=== PATIENT | male | born 1970 | race Caucasian/White ===

== ENCOUNTER 2017-05-04 09:35 | Emergency (ER) | payer OTHER ==
[~2017-05-04] VITALS: Wt 101.0 kg
[2017-05-04] MEDS ORDERED: IBUPROFEN 800 MG TAB PO ONE (10:00)
--- NOTE | 2017-05-04 10:09 | ERD ---
ER Documentation Chief Complaint Chief Complaint CHEST PAIN X 6 WEEKS ON AND OFF HPI Patient is a 46-year-old male with no medical problems who presents with chest pain. He says "I think it is just anxiety". He has had this for 6 weeks and says it is been constant but waxes and wanes in intensity. It is in the midsternal area. There is no radiation. He has had palpitations as well. He called his primary doctor today who told him to come to the emergency department. He has had stress and anxiety for the past few years. Upon review of old medical records this is the patient's first visit to the ER. ROS All systems reviewed and are negative except as per history of present illness. Medications Home Meds No Active Prescriptions or Reported Meds Allergies Allergies: Coded Allergies: No Known Allergy (Unverified , 05/04/17) PMhx/Soc Medical and Surgical Hx: pt denies Medical Hx, pt denies Surgical Hx Hx Psychiatric Problems: Yes (anxiety) Hx Alcohol Use: Yes (light) Hx Substance Use: Yes (marijuana) Hx Tobacco Use: Yes (1 cig a/day) Smoking Status: Light tobacco smoker FmHx Family History: No coronary disease Physical Exam Vitals Vital Signs Date Time Temp Pulse Resp B/P Pulse Ox O2 Delivery O2 Flow Rate FiO2 05/04/17 10:19 98.0 18 156/78 99 05/04/17 09:38 98.0 70 18 167/78 99 Physical Exam Const: No acute distress Head: Atraumatic Eyes: Normal Conjunctiva ENT: Normal External Ears, Nose and Mouth. Neck: Full range of motion..~ No meningismus. Resp: Clear to auscultation bilaterally Cardio: Regular rate and rhythm, no murmurs Abd: Soft, non tender, non distended. Normal bowel sounds Skin: No petechiae or rashes Back: No midline or flank tenderness Ext: No cyanosis, or edema Neur: Awake and alert Psych: Normal Mood and Affect Results 24 hrs Current Medications Medications (Trade) Dose Ordered Sig/Glenny Route PRN Reason Start Time Stop Time Status Last Admin Dose Admin Ibuprofen (Motrin) 800 mg ONCE ONCE PO 05/04/17 10:00 05/04/17 10:00 DC Procedures/MDM EKG read by me: Rate/Rhythm: Sinus bradycardia at a rate of 56 Intervals: Normal Impression: Sinus bradycardia without ischemia Chest X-ray 1V Interpreted by me: Soft Tissue: No acute abnormalities Bones: No acute abnormalities Mediastinum/Cardiac Silhouette/Lungs: No acute abnormalities Smoking Cessation Therapy: Pt. was lectured for greater than 3 minutes on the health risks of continued smoking and the benefits of cessation. Patient is a 46-year-old male who presents with chest pain. He describes it more as an anxiety with palpitations. His only risk factor is 1 cigarette per day. The patient is otherwise well-appearing and well hydrated. EKG shows no signs of ischemia or arrhythmia. Chest x-ray shows no pneumonia or pneumothorax. At this point I doubt acute coronary syndrome, pneumonia, pneumothorax, pulmonary embolism, or aortic dissection. I believe outpatient management is appropriate but the patient will need close follow-up with his primary doctor within 24-48 hours. He can return sooner for any worsening symptoms. Departure Diagnosis: Primary Impression: Chest pain Chest pain type: unspecified Qualified Code: R07.9 - Chest pain, unspecified type Condition: Fair Patient Instructions: Chest Pain, Uncertain Cause Referrals: CARL DOWELL MD Additional Instructions: Call your primary care doctor TOMORROW for an appointment during the next 1-2 days.See the doctor sooner or return here if your condition worsens before your appointment time. DIRK SANTOS MD May 04, 2017 10:09
--- NOTE | 2017-05-04 10:11 | RADRPT ---
PROCEDURE: XR Chest. CLINICAL INDICATION: chest pain TECHNIQUE: Single frontal view of the chest was obtained COMPARISON: None FINDINGS: The heart and mediastinum are within normal limits. The lungs are clear. There is no pleural effusion or pneumothorax. RPTAT: AA IMPRESSION: No acute disease. .Alessandro Perales MD, Date Time Electronically viewed and signed by .Alessandro Perales MD, on 05/04/2017 10:10 .S/
[2017-05-04 10:19] VITALS: BP 156/78; RESP 18; TEMP 98
== END 2017-05-04 10:19 | disposition home or self-care (01) ==
LOC: E/R 09:35
DX: R07.9 Chest pain, unspecified (principal); F17.210 Nicotine dependence, cigarettes, uncomplicated
CPT/HCPCS: 71010; 93005